=== PATIENT | female | born 1930 | race Hispanic/Latino ===

== ENCOUNTER 2018-04-16 05:20 | Observation (INO) | payer MEDICARE ==
[2018-04-13 11:06] LABS: BASOPHILS # (AUTO) 0.1 (0.0-0.1); BASOPHILS % 0.5 % (0.0-1.0); EOSINOPHILS # (AUTO) 0.2 (0.0-0.4); EOSINOPHILS % 1.4 % (0.0-6.0); HEMATOCRIT 39.9 % (34.2-44.1); HEMOGLOBIN 12.9 g/dL (12.0-16.0); LYMPHOCYTES # (AUTO) 2.5 (1.0-3.2); LYMPHOCYTES % 22.5 % (18.0-39.1); MEAN CORPUSCULAR HEMOGLOBIN 27.6 pg (28-32); MEAN CORPUSCULAR HGB CONC 32.3 g/dL (31-35); MEAN CORPUSCULAR VOLUME 85.3 fL (81-99); MONOCYTES # (AUTO) 0.7 (0.2-0.8); MONOCYTES % 6.6 % (4.4-11.3); NEUTROPHILS # (AUTO) 7.6 (2.1-6.9); NEUTROPHILS % 68.6 % (38.7-80.0); PLATELET COUNT 185 x10e3/uL (140-360); RED BLOOD COUNT 4.68 x10e6/uL (3.6-5.1); RED CELL DISTRIBUTION WIDTH 12.4 % (11.7-14.4)
[2018-04-13 11:22] LABS: CALCIUM 9.3 mg/dL (8.4-10.2); CREATININE, SERUM 1.04 mg/dL (0.57-1.11)
[~2018-04-16] VITALS: Ht 162.6 cm; Wt 73.5 kg
[~2018-04-16 05:20] MED LIST: AMLODIPINE BESYL5 MG PO; ATORVASTATIN CA10 MG PO; LANTUS 3ML100 UNITS/ SC; METOPROLOL SUCC25 MG PO; TYLENOL ARTHRITIS PO; VIT D2 PO
--- OUTSIDE RECORDS SUMMARY | 2018-04-16 05:27 | XMS REPORT | Summary of Care ---
Author Organization Unknown Address Unknown Phone Unavailable Encounter [facility](RAFAEL) [id number] Date(s): 03/06/14 - 03/08/14 [address] [place], [place] [id number] [place] [address] Discharge Diagnosis: Acute gastroenteritis Discharge Disposition: Home Physician Attending: Eric Mcguire MD Physician Admitting: Eric Mcguire MD Reason for Visit SBO Vital Signs 1 2 3 Most recent to oldest [Reference Range]: 162.56 cm (03/07/14 3:40 AM) 162.56 cm (03/06/14 6:56 PM) Height 72.727 kg (03/07/14 5:00 AM) Current Weight 97.8 DegF (03/08/14 11:40 AM) 98.3 DegF (03/08/14 8:50 AM) 98 DegF (03/08/14 3:58 AM) Temperature Oral [96.4-99.1 DegF] 147 mmHg *HI* (03/08/14 11:40 AM) 127 mmHg (03/08/14 8:50 AM) 149 mmHg *HI* (03/08/14 3:58 AM) Systolic Blood Pressure [90-140 mmHg] 68 mmHg (03/08/14 11:40 AM) 67 mmHg (03/08/14 8:50 AM) 66 mmHg (03/08/14 3:58 AM) Diastolic Blood Pressure [60-90 mmHg] 16 BRMIN (03/08/14 11:40 AM) 16 BRMIN (03/08/14 8:50 AM) 16 BRMIN (03/08/14 3:58 AM) Respiratory Rate [14-20 BRMIN] 81 bpm (03/08/14 11:40 AM) 82 bpm (03/08/14 8:50 AM) 97 bpm (03/08/14 3:58 AM) Peripheral Pulse Rate [60-100 bpm] 73.636 kg (03/07/14 3:40 AM) 73.636 kg (03/06/14 6:56 PM) Weight 27.87 m2 (03/07/14 3:40 AM) 27.87 m2 (03/06/14 6:56 PM) Body Mass Index Problem List Condition Effective Dates Status Health Status Informant Diabetes(Confirmed) Resolved High Resolved cholesterol(Confirme d) Hypertension(Confirm Resolved ed) Allergies, Adverse Reactions, Alerts Substance Reaction Severity Status codeine Active penicillins Active Medications Ativan 1 mg, Route: IVP, Drug form: INJ, ONCE, Dosing Weight 73.636, kg, Priority: STAT , Start date: 03/06/14 23:42:00, Stop date: 03/06/14 23:42:00 Start Date: 03/06/14 Stop Date: 03/06/14 Status: Completed atorvastatin 10 mg, 1 tab, Route: PO, Drug form: TAB, Bedtime, Dosing Weight 73.636, kg, Star t date: 03/07/14 21:00:00, Duration: 30 day, Stop date: 04/05/14 21:00:00 Notes: (Same As: Lipitor) Start Date: 03/07/14 Stop Date: 03/08/14 Status: Discontinued atorvastatin 10 mg oral tablet 10 mg=1 tab, PO, Bedtime, # 30 tab, 0 Refill(s) Start Date: 03/07/14 Status: Ordered Cozaar 100 mg, 2 tab, Route: PO, Drug form: TAB, Daily, Start date: 03/08/14 9:00:00, D uration: 30 day, Stop date: 04/06/14 9:00:00 Notes: (Same as: Cozaar) Start Date: 03/08/14 Stop Date: 03/08/14 Status: Discontinued Dextrose 50% Syringe 12.5 gm, 25 mL, Route: IVP, Drug Form: INJ, Dosing Weight 73.636, kg, PRN, PRN B lood Glucose Results, Start date: 03/07/14 11:26:00, Duration: 30 day, Stop date : 04/06/14 11:25:00 Start Date: 03/07/14 Stop Date: 03/07/14 Status: Discontinued Dextrose 50% Syringe 25 gm, 50 mL, Route: IVP, Drug Form: INJ, Dosing Weight 73.636, kg, PRN, PRN Blo od Glucose Results, Start date: 03/07/14 11:26:00, Duration: 30 day, Stop date: 04/06/14 11:25:00 Start Date: 03/07/14 Stop Date: 03/07/14 Status: Discontinued Dextrose 50% Syringe 12.5 gm, 25 mL, Route: IVP, Drug Form: INJ, Dosing Weight 73.636, kg, PRN, PRN B lood Glucose Results, Start date: 03/07/14 18:13:00, Duration: 30 day, Stop date : 04/06/14 18:12:00 Start Date: 03/07/14 Stop Date: 03/08/14 Status: Discontinued Dextrose 50% Syringe 25 gm, 50 mL, Route: IVP, Drug Form: INJ, Dosing Weight 73.636, kg, PRN, PRN Blo od Glucose Results, Start date: 03/07/14 18:13:00, Duration: 30 day, Stop date: 04/06/14 18:12:00 Start Date: 03/07/14 Stop Date: 03/08/14 Status: Discontinued Dilaudid 1 mg, Route: IV, ONCE, Dosing Weight 73.636, kg, Start date: 03/06/14 21:14:00, Stop date: 03/06/14 21:14:00 Start Date: 03/06/14 Stop Date: 03/06/14 Status: Discontinued Flagyl 500 mg oral tablet 500 mg=1 tab, PO, Q8H, # 21 tab, 0 Refill(s) Start Date: 03/08/14 Stop Date: 03/15/14 Status: Ordered glipiZIDE 5 mg oral tablet 5 mg, 1 tab, Route: PO, Drug form: TAB, Daily, Dosing Weight 73.636, kg, Start d ate: 03/08/14 9:00:00, Duration: 30 day, Stop date: 04/06/14 9:00:00 Notes: (Same as: Glucotrol) 30 min before meals. Start Date: 03/08/14 Stop Date: 03/08/14 Status: Discontinued glipiZIDE 5 mg oral tablet 5 mg=1 tab, PO, Daily, # 30 tab, 0 Refill(s) Start Date: 03/07/14 Status: Ordered glucagon 1 mg, Route: IM, Drug form: PDR/INJ, PRN, Dosing Weight 73.636, kg, PRN Blood Gl ucose Results, Start date: 03/07/14 11:26:00, Duration: 30 day, Stop date: 04/06 11:25:00 Start Date: 03/07/14 Stop Date: 03/07/14 Status: Discontinued glucagon 1 mg, Route: IM, Drug form: PDR/INJ, PRN, Dosing Weight 73.636, kg, PRN Blood Gl ucose Results, Start date: 03/07/14 18:13:00, Duration: 30 day, Stop date: 04/06 18:12:00 Start Date: 03/07/14 Stop Date: 03/08/14 Status: Discontinued hydrochlorothiazide-losartan 12.5 mg-100 mg oral tablet 1 tab, Route: PO, Drug Form: TAB, Dosing Weight 73.636, kg, Daily, Start date: 0 03/08/14 9:00:00, Duration: 30 day, Stop date: 04/06/14 9:00:00 Start Date: 03/08/14 Stop Date: 03/07/14 Status: Deleted hydrochlorothiazide-losartan 12.5 mg-100 mg oral tablet 1 tab, PO, Daily, # 30 tab, 0 Refill(s) Start Date: 03/07/14 Status: Ordered insulin aspart 1 unit, 0.01 mL, Route: SUB-Q, Drug form: SOLN, Bedtime, Dosing Weight 73.636, k g, PRN Blood Glucose Results, Start date: 03/07/14 11:26:00, Duration: 30 day, S top date: 04/06/14 11:25:00 Notes: Roll in palms of hands gently; Do not shake vigorously. (Same as: Nalini Mayers)"single patient use only" Stable for 28 days at room temperature.Expires in _ ____ days from Date Start Date: 03/07/14 Stop Date: 03/07/14 Status: Discontinued insulin aspart 4 unit, 0.04 mL, Route: SUB-Q, Drug form: SOLN, Bedtime, Dosing Weight 73.636, k g, PRN Blood Glucose Results, Start date: 03/07/14 11:26:00, Duration: 30 day, S top date: 04/06/14 11:25:00 Notes: Roll in palms of hands gently; Do not shake vigorously. (Same as: NovoLO G)"single patient use only" Stable for 28 days at room temperature.Expires in _ ____ days from Date Start Date: 03/07/14 Stop Date: 03/07/14 Status: Discontinued insulin aspart 3 unit, 0.03 mL, Route: SUB-Q, Drug form: SOLN, Bedtime, Dosing Weight 73.636, k g, PRN Blood Glucose Results, Start date: 03/07/14 11:26:00, Duration: 30 day, S top date: 04/06/14 11:25:00 Notes: Roll in palms of hands gently; Do not shake vigorously. (Same as: NovoLO G)"single patient use only" Stable for 28 days at room temperature.Expires in _ ____ days from Date Start Date: 03/07/14 Stop Date: 03/07/14 Status: Discontinued insulin aspart 2 unit, 0.02 mL, Route: SUB-Q, Drug form: SOLN, Bedtime, Dosing Weight 73.636, k g, PRN Blood Glucose Results, Start date: 03/07/14 11:26:00, Duration: 30 day, S top date: 04/06/14 11:25:00 Notes: Roll in palms of hands gently; Do not shake vigorously. (Same as: NovoLO G)"single patient use only" Stable for 28 days at room temperature.Expires in _ ____ days from Date Start Date: 03/07/14 Stop Date: 03/07/14 Status: Discontinued insulin aspart 10 unit, 0.1 mL, Route: SUB-Q, Drug form: SOLN, TID-Before Meals, Dosing Weight 73.636, kg, PRN Blood Glucose Results, Start date: 03/07/14 11:26:00, Duration: 30 day, Stop date: 04/06/14 11:25:00 Notes: Roll in palms of hands gently; Do not shake vigorously. (Same as: NovoLO G)"single patient use only" Stable for 28 days at room temperature.Expires in _ ____ days from Date Start Date: 03/07/14 Stop Date: 03/07/14 Status: Discontinued insulin aspart 8 unit, 0.08 mL, Route: SUB-Q, Drug form: SOLN, TID-Before Meals, Dosing Weight 73.636, kg, PRN Blood Glucose Results, Start date: 03/07/14 11:26:00, Duration: 30 day, Stop date: 04/06/14 11:25:00 Notes: Roll in palms of hands gently; Do not shake vigorously. (Same as: NovoLO G)"single patient use only" Stable for 28 days at room temperature.Expires in _ ____ days from Date Start Date: 03/07/14 Stop Date: 03/07/14 Status: Discontinued insulin aspart 2 unit, 0.02 mL, Route: SUB-Q, Drug form: SOLN, TID-Before Meals, Dosing Weight 73.636, kg, PRN Blood Glucose Results, Start date: 03/07/14 11:26:00, Duration: 30 day, Stop date: 04/06/14 11:25:00 Notes: Roll in palms of hands gently; Do not shake vigorously. (Same as: NovoLO G)"single patient use only" Stable for 28 days at room temperature.Expires in _ ____ days from Date Start Date: 03/07/14 Stop Date: 03/07/14 Status: Discontinued insulin aspart 6 unit, 0.06 mL, Route: SUB-Q, Drug form: SOLN, TID-Before Meals, Dosing Weight 73.636, kg, PRN Blood Glucose Results, Start date: 03/07/14 11:26:00, Duration: 30 day, Stop date: 04/06/14 11:25:00 Notes: Roll in palms of hands gently; Do not shake vigorously. (Same as: NovoLO G)"single patient use only" Stable for 28 days at room temperature.Expires in _ ____ days from Date Start Date: 03/07/14 Stop Date: 03/07/14 Status: Discontinued insulin aspart 4 unit, 0.04 mL, Route: SUB-Q, Drug form: SOLN, TID-Before Meals, Dosing Weight 73.636, kg, PRN Blood Glucose Results, Start date: 03/07/14 11:26:00, Duration: 30 day, Stop date: 04/06/14 11:25:00 Notes: Roll in palms of hands gently; Do not shake vigorously. (Same as: NovoLO G)"single patient use only" Stable for 28 days at room temperature.Expires in _ ____ days from Date Start Date: 03/07/14 Stop Date: 03/07/14 Status: Discontinued insulin aspart 4 unit, 0.04 mL, Route: SUB-Q, Drug form: SOLN, TID-Before Meals, Dosing Weight 73.636, kg, PRN Blood Glucose Results, Start date: 03/07/14 18:13:00, Duration: 30 day, Stop date: 04/06/14 18:12:00 Notes: Roll in palms of hands gently; Do not shake vigorously. (Same as: NovoLO G)"single patient use only" Stable for 28 days at room temperature.Expires in _ ____ days from Date Start Date: 03/07/14 Stop Date: 03/08/14 Status: Discontinued insulin aspart 5 unit, 0.05 mL, Route: SUB-Q, Drug form: SOLN, TID-Before Meals, Dosing Weight 73.636, kg, PRN Blood Glucose Results, Start date: 03/07/14 18:13:00, Duration: 30 day, Stop date: 04/06/14 18:12:00 Notes: Roll in palms of hands gently; Do not shake vigorously. (Same as: NovoLO G)"single patient use only" Stable for 28 days at room temperature.Expires in _ ____ days from Date Start Date: 03/07/14 Stop Date: 03/08/14 Status: Discontinued insulin aspart 2 unit, 0.02 mL, Route: SUB-Q, Drug form: SOLN, Bedtime, Dosing Weight 73.636, k g, PRN Blood Glucose Results, Start date: 03/07/14 18:13:00, Duration: 30 day, S top date: 04/06/14 18:12:00 Notes: Roll in palms of hands gently; Do not shake vigorously. (Same as: NovoLO G)"single patient use only" Stable for 28 days at room temperature.Expires in _ ____ days from Date Start Date: 03/07/14 Stop Date: 03/08/14 Status: Discontinued insulin aspart 1 unit, 0.01 mL, Route: SUB-Q, Drug form: SOLN, Bedtime, Dosing Weight 73.636, k g, PRN Blood Glucose Results, Start date: 03/07/14 18:13:00, Duration: 30 day, S top date: 04/06/14 18:12:00 Notes: Roll in palms of hands gently; Do not shake vigorously. (Same as: NovoLO G)"single patient use only" Stable for 28 days at room temperature.Expires in _ ____ days from Date Start Date: 03/07/14 Stop Date: 03/08/14 Status: Discontinued insulin aspart 3 unit, 0.03 mL, Route: SUB-Q, Drug form: SOLN, Bedtime, Dosing Weight 73.636, k g, PRN Blood Glucose Results, Start date: 03/07/14 18:13:00, Duration: 30 day, S top date: 04/06/14 18:12:00 Notes: Roll in palms of hands gently; Do not shake vigorously. (Same as: NovoLO G)"single patient use only" Stable for 28 days at room temperature.Expires in _ ____ days from Date Start Date: 03/07/14 Stop Date: 03/08/14 Status: Discontinued insulin aspart 4 unit, 0.04 mL, Route: SUB-Q, Drug form: SOLN, Bedtime, Dosing Weight 73.636, k g, PRN Blood Glucose Results, Start date: 03/07/14 18:13:00, Duration: 30 day, S top date: 04/06/14 18:12:00 Notes: Roll in palms of hands gently; Do not shake vigorously. (Same as: NovoLO G)"single patient use only" Stable for 28 days at room temperature.Expires in _ ____ days from Date Start Date: 03/07/14 Stop Date: 03/08/14 Status: Discontinued insulin aspart 3 unit, 0.03 mL, Route: SUB-Q, Drug form: SOLN, TID-Before Meals, Dosing Weight 73.636, kg, PRN Blood Glucose Results, Start date: 03/07/14 18:13:00, Duration: 30 day, Stop date: 04/06/14 18:12:00 Notes: Roll in palms of hands gently; Do not shake vigorously. (Same as: NovoLO G)"single patient use only" Stable for 28 days at room temperature.Expires in _ ____ days from Date Start Date: 03/07/14 Stop Date: 03/08/14 Status: Discontinued insulin aspart 1 unit, 0.01 mL, Route: SUB-Q, Drug form: SOLN, TID-Before Meals, Dosing Weight 73.636, kg, PRN Blood Glucose Results, Start date: 03/07/14 18:13:00, Duration: 30 day, Stop date: 04/06/14 18:12:00 Notes: Roll in palms of hands gently; Do not shake vigorously. (Same as: NovoLO G)"single patient use only" Stable for 28 days at room temperature.Expires in _ ____ days from Date Start Date: 03/07/14 Stop Date: 03/08/14 Status: Discontinued insulin aspart 2 unit, 0.02 mL, Route: SUB-Q, Drug form: SOLN, TID-Before Meals, Dosing Weight 73.636, kg, PRN Blood Glucose Results, Start date: 03/07/14 18:13:00, Duration: 30 day, Stop date: 04/06/14 18:12:00 Notes: Roll in palms of hands gently; Do not shake vigorously. (Same as: NovoPELON Mayers)"single patient use only" Stable for 28 days at room temperature.Expires in _ ____ days from Date Start Date: 03/07/14 Stop Date: 03/08/14 Status: Discontinued insulin detemir 100 units/mL subcutaneous solution 40 unit, SUB-Q, Daily, 0 Refill(s) Start Date: 03/08/14 Status: Ordered Lantus 40 units, Daily, 0 Refill(s) Start Date: 03/07/14 Status: Ordered Lantus Route: SUB-Q, Daily, Dosing Weight 73.636, kg, Start date: 03/08/14 9:00:00, Dur ation: 30 day, Stop date: 04/06/14 9:00:00 Start Date: 03/08/14 Stop Date: 03/07/14 Status: Deleted Levemir FlexPen 40 unit, 0.4 mL, Route: SUB-Q, Drug form: INJ, Daily, Start date: 03/08/14 9:00: 00, Duration: 30 day, Stop date: 04/06/14 9:00:00 Notes: Same as LevemirDo not hold insulin without contacting prescriber "single patient use only" Start Date: 03/08/14 Stop Date: 03/08/14 Status: Discontinued loperamide 2 mg, 1 cap, Route: PO, Drug form: CAP, ONCE, Dosing Weight 73.636, kg, Priority : STAT, Start date: 03/06/14 20:35:00, Stop date: 03/06/14 20:35:00 Notes: (Same as: Imodium) MAX adult dose is 8 caps/day Start Date: 03/06/14 Stop Date: 03/06/14 Status: Completed metoprolol tartrate 25 mg, 1 tab, Route: PO, Drug form: TAB, Daily, Dosing Weight 73.636, kg, Start date: 03/08/14 9:00:00, Duration: 30 day, Stop date: 04/06/14 9:00:00 Notes: (Same as: Lopressor) Start Date: 03/08/14 Stop Date: 03/08/14 Status: Discontinued Metoprolol Tartrate 25 mg oral tablet Daily, 0 Refill(s) Start Date: 03/06/14 Status: Ordered Microzide 12.5 mg, 1 cap, Route: PO, Drug form: CAP, Daily, Start date: 03/08/14 9:00:00, Duration: 30 day, Stop date: 04/06/14 9:00:00 Notes: (Same as: Microzide) With food. Start Date: 03/08/14 Stop Date: 03/08/14 Status: Discontinued morphine Sulfate 2 mg, 1 mL, Route: IVP, Drug form: INJ, Q3H, Dosing Weight 73.636, kg, PRN Pain Score 4-6, Start date: 03/07/14 4:19:00, Duration: 30 day, Stop date: 04/06/14 4 :18:00 Notes: (Same as:MORPhine Sulfate) Start Date: 03/07/14 Stop Date: 03/08/14 Status: Discontinued morphine Sulfate 4 mg, 2 mL, Route: IVP, Drug form: INJ, ONCE, Dosing Weight 73.636, kg, Priority : STAT, Start date: 03/06/14 23:42:00, Stop date: 03/06/14 23:42:00 Notes: (Same as:MORPhine Sulfate) Start Date: 03/06/14 Stop Date: 03/07/14 Status: Completed NS + KCL 20mEq/L 1000ml (Premix) 1,000 mL 1,000 mL, Rate: 125 ml/hr, Infuse over: 8 hr, Route: IV, Dosing Weight 73.636 kg , Total Volume: 1,000, Start date: 03/07/14 0:35:00, Duration: 30 day, Stop date : 04/06/14 0:34:00 Notes: PREMIX IV - Do Not Alter Start Date: 03/07/14 Stop Date: 03/08/14 Status: Discontinued ondansetron 4 mg, 2 mL, Route: IVP, Drug form: INJ, Q8H, Dosing Weight 73.636, kg, PRN Nause a & Vomiting, Start date: 03/07/14 4:19:00, Duration: 30 day, Stop date: 04/06/14 4:18:00 Notes: (Same as: Zofran) Start Date: 03/07/14 Stop Date: 03/08/14 Status: Discontinued ondansetron 4 mg, Route: IVP, Drug form: INJ, ONCE, Dosing Weight 73.636, kg, Priority: STAT , Start date: 03/06/14 20:32:00, Stop date: 03/06/14 20:32:00 Start Date: 03/06/14 Stop Date: 03/06/14 Status: Completed Onglyza 2.5 mg oral tablet 2.5 mg=1 tab, PO, Daily, # 30 tab, 0 Refill(s) Start Date: 03/07/14 Status: Ordered pneumococcal 23-valent vaccine 0.5 ml, Route: IM, Drug Form: INJ, Daily, Start date: 03/07/14 9:00:00, Duration : 1 doses or times, Stop date: 03/07/14 9:00:00 Notes: (Same as: Pneumovax 23) Refrigerate Start Date: 03/07/14 Stop Date: 03/07/14 Status: Completed potassium chloride 20 mEq, 100 mL, Route: IVPB, Drug form: INJ, Q2H, Dosing Weight 73.636, kg, Tota l dose=40 mEq, Start date: 03/07/14 12:00:00, Duration: 2 doses or times, Stop d ate: 03/07/14 14:00:00 Notes: (Same as: KCL) Infuse no faster than 10 mEq/hr if given peripherally. Start Date: 03/07/14 Stop Date: 03/07/14 Status: Completed Sodium Chloride 0.9% (Bolus) IV 1,000 mL, 1,000 ml/hr, Infuse Over: 1 hr, Route: IV, ONCE, Priority: STAT, Dosin g Weight 73.636 kg, Start date: 03/06/14 20:32:00, Duration: 1 doses or times, S top date: 03/06/14 20:32:00 Start Date: 03/06/14 Stop Date: 03/06/14 Status: Completed Zofran 4 mg, 2 mL, Route: IVP, Drug form: INJ, ONCE, Dosing Weight 73.636, kg, Priority : STAT, Start date: 03/06/14 23:42:00, Stop date: 03/06/14 23:42:00 Notes: (Same as: Zofran) Start Date: 03/06/14 Stop Date: 03/07/14 Status: Completed Zofran 4 mg oral tablet 4 mg=1 tab, PO, BID, # 10 tab, 0 Refill(s) Start Date: 03/06/14 Status: Ordered Results ELECTROLYTES 1 2 3 Most recent to oldest [Reference Range]: 141 mEq/L (03/08/14 4:14 AM) 131 mEq/L *LOW* (03/06/14 8:40 PM) Sodium Lvl [135-145 mEq/L] 4.2 mEq/L (03/08/14 4:14 AM) 3.0 mEq/L 1 *CRIT* (03/06/14 8:40 PM) Potassium Lvl [3.5-5.1 mEq/L] 113 mEq/L *HI* (03/08/14 4:14 AM) 97 mEq/L (03/06/14 8:40 PM) Chloride Lvl [95-109 mEq/L] 23 mEq/L *LOW* (03/08/14 4:14 AM) 23 mEq/L *LOW* (03/06/14 8:40 PM) CO2 [24-32 mEq/L] 9.2 mEq/L *LOW* (03/08/14 4:14 AM) AGAP [10.0-20.0 mEq/L] 1Result Comment: Critical Result(s) called to ashley acuña at 03/06/2014 21:11 by LEN. Read back OK. CHEM PANEL 1 2 3 Most recent to oldest [Reference Range]: 1.0 mg/dL (03/08/14 4:14 AM) 1.6 mg/dL *HI* (03/06/14 8:40 PM) Creatinine Lvl [0.5-1.4 mg/dL] 52 mL/min/1.73m2 2 *NA* (03/08/14 4:14 AM) 30 mL/min/1.73m2 3 *NA* (03/06/14 8:40 PM) eGFR 15 mg/dL (03/08/14 4:14 AM) 29 mg/dL *HI* (03/06/14 8:40 PM) BUN [7-22 mg/dL] 15 (03/08/14 4:14 AM) 18 (03/06/14 8:40 PM) B/C Ratio [6-25] 122 mg/dL 4 *HI* (03/08/14 4:14 AM) 213 mg/dL 5 *HI* (03/06/14 8:40 PM) Glucose Lvl [70-99 mg/dL] 6.2 g/dL *LOW* (03/08/14 4:14 AM) 8.4 g/dL (03/06/14 8:40 PM) Total Protein [6.4-8.4 g/dL] 3.0 g/dL *LOW* (03/08/14 4:14 AM) 4.2 g/dL (03/06/14 8:40 PM) Albumin Lvl [3.5-5.0 g/dL] 3.2 g/dL (03/08/14 4:14 AM) 4.2 g/dL *HI* (03/06/14 8:40 PM) Globulin [2.0-4.0 g/dL] 0.9 (03/08/14 4:14 AM) 1.0 (03/06/14 8:40 PM) A/G Ratio [0.7-1.6] 7.6 mg/dL *LOW* (03/08/14 4:14 AM) 8.9 mg/dL (03/06/14 8:40 PM) Calcium Lvl [8.5-10.5 mg/dL] 16 unit/L (03/08/14 4:14 AM) 21 unit/L (03/06/14 8:40 PM) ALT [0-65 unit/L] 12 unit/L (03/08/14 4:14 AM) 12 unit/L (03/06/14 8:40 PM) AST [0-37 unit/L] 78 unit/L (03/08/14 4:14 AM) 104 unit/L (03/06/14 8:40 PM) Alk Phos [39-136 unit/L] 0.8 mg/dL (03/08/14 4:14 AM) 0.9 mg/dL (03/06/14 8:40 PM) Bili Total [0.2-1.3 mg/dL] 21 unit/L *LOW* (03/06/14 8:40 PM) Amylase Lvl [25-115 unit/L] 59 unit/L *LOW* (03/06/14 8:40 PM) Lipase Lvl [73-393 unit/L] 2Result Comment: The eGFR is calculated using the CKD-EPI formula. In most young, healthy individuals the eGFR will be >90 mL/min/1.73m2. The eGFR declines with age. An eGFR of 60-89 may be normal in some populations, particularly the elderly, for whom the CKD-EPI formula has not been extensively validated. Use of the eGFR is not recommended in the following populations: Individuals with unstable creatinine concentrations, including patients and those with serious co-morbid conditions. Patients with extremes in muscle mass or diet. The data above are obtained from the National Kid[employer] Disease Education Program ( NK[employer]) which additionally recommends that when the eGFR is used in patients with extremes of body mass index for purposes of drug dosing, the eGFR should be mul tiplied by the estimated BMI. 3Result Comment: The eGFR is calculated using the CKD-EPI formula. In most young, healthy individuals the eGFR will be >90 mL/min/1.73m2. The eGFR declines with age. An eGFR of 60-89 may be normal in some populations, particularly the elderly, for whom the CKD-EPI formula has not been extensively validated. Use of the eGFR is not recommended in the following populations: Individuals with unstable creatinine concentrations, including patients and those with serious co-morbid conditions. Patients with extremes in muscle mass or diet. The data above are obtained from the National Kidney Disease Education Program ( NKDEP) which additionally recommends that when the eGFR is used in patients with extremes of body mass index for purposes of drug dosing, the eGFR should be mul tiplied by the estimated BMI. 4Interpretive Data: Adult reference range values reflect the clinical guidelines of the [employer] [place] [employer]. 5Interpretive Data: Adult reference range values reflect the clinical guidelines of the [employer] [place] [employer]. SPECIAL CHEMISTRY 1 2 3 Most recent to oldest [Reference Range]: 8.0 % *HI* (03/08/14 4:14 AM) Hgb A1C [<=5.6 %] URINE AND STOOL 1 2 3 Most recent to oldest [Reference Range]: Clear (03/07/14 9:46 PM) UA Turbidity [Clear] Ltyellow *NA* (03/07/14 9:46 PM) UA Color 5.0 (03/07/14 9:46 PM) UA pH [5.0-8.0] 1.011 (03/07/14 9:46 PM) UA Spec Grav [<=1.030] Negative mg/dL *NA* (03/07/14 9:46 PM) UA Glucose [Negative mg/dL] Negative (03/07/14 9:46 PM) UA Blood [Negative] Negative mg/dL *NA* (03/07/14 9:46 PM) UA Ketones [Negative mg/dL] Negative mg/dL (03/07/14 9:46 PM) UA Protein [Negative mg/dL] <=1.0 mg/dL *NA* (03/07/14 9:46 PM) UA Urobilinogen [0.1-1.0 mg/dL] Negative *NA* (03/07/14 9:46 PM) UA Bili [Negative] Negative (03/07/14 9:46 PM) UA Leuk Est [Negative] Negative (03/07/14 9:46 PM) UA Nitrite [Negative] 5 /HPF (03/07/14 9:46 PM) UA WBC [0-5 /HPF] <1 /HPF (03/07/14 9:46 PM) UA RBC [0-2 /HPF] Occasional /HPF *NA* (03/07/14 9:46 PM) UA Bacteria [None Seen /HPF] Occasional /LPF *NA* (03/07/14 9:46 PM) UA Sq Epi [Few /LPF] HEMATOLOGY 1 2 3 Most recent to oldest [Reference Range]: 9.0 K/CMM (03/08/14 4:14 AM) 18.1 K/CMM *HI* (03/06/14 8:40 PM) WBC [3.7-10.4 K/CMM] 4.09 M/CMM *LOW* (1/17/15 4:14 AM) 5.06 M/CMM (03/06/14 8:40 PM) RBC [4.20-5.40 M/CMM] 11.6 g/dL *LOW* (03/08/14 4:14 AM) 11.6 g/dL *LOW* (03/08/14 4:14 AM) 14.2 g/dL (03/06/14 8:40 PM) Hgb [12.0-16.0 g/dL] 35.0 % *LOW* (03/08/14 4:14 AM) 35.0 % *LOW* (03/08/14 4:14 AM) 42.7 % (03/06/14 8:40 PM) Hct [36.0-48.0 %] 85.6 fL (03/08/14 4:14 AM) 84.3 fL (03/06/14 8:40 PM) MCV [80.0-98.0 fL] 28.3 pg (03/08/14 4:14 AM) 28.0 pg (03/06/14 8:40 PM) MCH [27.0-31.0 pg] 33.1 g/dL (03/08/14 4:14 AM) 33.2 g/dL (03/06/14 8:40 PM) MCHC [32.0-36.0 g/dL] 13.1 % (03/08/14 4:14 AM) 13.4 % (03/06/14 8:40 PM) RDW [11.5-14.5 %] 158 K/CMM (03/08/14 4:14 AM) 211 K/CMM (03/06/14 8:40 PM) Platelet [133-450 K/CMM] 10.9 fL *HI* (03/08/14 4:14 AM) 10.6 fL *HI* (03/06/14 8:40 PM) MPV [7.4-10.4 fL] 63.2 % (03/08/14 4:14 AM) 82.9 % *HI* (03/06/14 8:40 PM) Segs [45.0-75.0 %] 22.8 % (03/08/14 4:14 AM) 10.5 % *LOW* (03/06/14 8:40 PM) Lymphocytes [20.0-40.0 %] 9.3 % (03/08/14 4:14 AM) 5.7 % (03/06/14 8:40 PM) Monocytes [2.0-12.0 %] 4.2 % *HI* (03/08/14 4:14 AM) 0.4 % (03/06/14 8:40 PM) Eosinophils [0.0-4.0 %] 0.5 % (03/08/14 4:14 AM) 0.5 % (03/06/14 8:40 PM) Basophils [0.0-1.0 %] 5.7 K/CMM (03/08/14 4:14 AM) 15.0 K/CMM *HI* (03/06/14 8:40 PM) Segs-Bands # [1.5-8.1 K/CMM] 2.0 K/CMM (03/08/14 4:14 AM) 1.9 K/CMM (03/06/14 8:40 PM) Lymphocytes # [1.0-5.5 K/CMM] 0.8 K/CMM (03/08/14 4:14 AM) 1.0 K/CMM *HI* (03/06/14 8:40 PM) Monocytes # [0.0-0.8 K/CMM] 0.4 K/CMM (03/08/14 4:14 AM) 0.1 K/CMM (03/06/14 8:40 PM) Eosinophils # [0.0-0.5 K/CMM] 0.1 K/CMM (03/06/14 8:40 PM) Basophils # [0.0-0.2 K/CMM] 14.3 seconds (03/08/14 4:14 AM) PT [12.0-14.7 seconds] 1.10 6 (03/08/14 4:14 AM) INR [0.85-1.17] 38.8 seconds 7 *HI* (03/08/14 4:14 AM) PTT [22.9-35.8 seconds] 6Interpretive Data: RECOMMENDED RANGES FOR PROTIME INR: 2.0-3.0 for most medical and surgical thromboembolic states. 2.5-3.5 for artificial heart valves and recurrent embolism. INR SHOULD BE USED ONLY FOR PATIENTS ON STABLE ANTICOAGULANT THERAPY. 7Interpretive Data: Heparin Therapeutic Range: 57 - 92 Seconds MOLECULAR DIAGNOSTIC 1 2 3 Most recent to oldest [Reference Range]: Negative 8 (03/07/14 11:41 PM) C difficile DNA [Negative] 8Interpretive Data: [employer] Clostridium difficile assay utilizes loop-mediated isothermal DNA amplification (LAMP) technology to detect a 204 bp region of the tcdA gene within the PaLoc gene segment present in all known toxigenic C. difficile strains. The assay utilizes FDA cleared IVD reagents. Performance characteristics have be en verified by the [facility] within the [facility]. The [facility] is authorized under the Clinical Labo ratory Improvement Amendment of 1988 (CLIA-88) to perform high complexity testin g. Medications Administered During Your Visit No data available for this section Immunizations Vaccine Date Refusal Reason pneumococcal 23-valent vaccine 03/07/14 Patient Refuses Procedures Procedure Type Body Site Date of Procedure Related Diagnosis Cataract surgery Cholecystectomy Social History Social History Type Response Smoking Status Never smoker, Exposure to Tobacco Smoke None, Cigarette Smoking Last 365 Days No, Reg Smoking Cessation Counseling No Assessment and Plan Extracted from: Title: Clinical Document Author: Maria Del Carmen Brito Date: 03/08/14 [facility] Progress Note SUBJECTIVE No acute events. Pt denies ZACARIAS, dizziness, dysphagia, neck stiffness, CP, SOB, hemoptysis, N/V/D/C, hematemesis, hematochezia, hematuria, dysuria, skin rash. Pt reports abd pain is gone, no more diarrhea, no more abd distention. Tolerated breakfast fine. OBJECTIVE Vital Signs (last 24 hrs) Last Charted Minimum Maximum Temp97.8 (MAR 08 11:40)97.8 (MAR 08 11:40)98.7 (MAR 07 15:53) Heart Rate81 (MAR 08 11:40)81 (MAR 08 11:40)97 (MAR 08 03:58) Resp Rate 16 (MAR 08 11:40)16 (MAR 08 03:58)18 (MAR 07 15:53) SBPH 147 (MAR 08 11:40)127 (MAR 07 15:53)H 152 (MAR 07 23:59) DBP68 (MAR 08 11:40)66 (MAR 08 03:58)70 (MAR 07 15:53) Labs (Last four charted values) WBC 9.0(MAR 08)H 18.1(MAR 06) Hgb L 11.6(MAR 08)L 11.6(MAR 08)14.2(MAR 06) Hct L 35.0(MAR 08)L 35.0(MAR 08)42.7(MAR 06) Plt 158(MAR 08)211(MAR 06) Na 141(MAR 08)L 131(MAR 06) K 4.2(MAR 08)C 3.0(MAR 06) CO2 L 23(MAR 08)L 23(MAR 06) Cl H 113(MAR 08)97(MAR 06) Cr 1.0(MAR 08)H 1.6(MAR 06) BUN 15(MAR 08)H 29(MAR 06) Glucose Random H 122(MAR 08)H 213(MAR 06) Ca L 7.6(MAR 08)8.9(MAR 06) PT 14.3(MAR 08) INR 1.10(MAR 08) PTT H 38.8(MAR 08) Medications (21) Active Scheduled Meds (6): 03/07/14 atorvastatin 10 mg PO Bedtime 03/08/14 glipiZIDE (glipiZIDE 5 mg oral tablet) 5 mg PO Daily 03/08/14 hydrochlorothiazide (Microzide) 12.5 mg PO Daily 03/08/14 insulin detemir (Levemir FlexPen) 40 unit SUB-Q Daily 03/08/14 losartan (Cozaar) 100 mg PO Daily 03/08/14 metoprolol (metoprolol tartrate) 25 mg PO Daily Unscheduled Meds: None PRN Meds (14): 03/07/14 Dextrose 50% in Water IV (Dextrose 50% Syringe) 12.5 gm IVP PRN 03/07/14 Dextrose 50% in Water IV (Dextrose 50% Syringe) 25 gm IVP PRN 03/07/14 glucagon 1 mg IM PRN 03/07/14 insulin aspart 1 unit SUB-Q TID-Before Meals 03/07/14 insulin aspart 2 unit SUB-Q TID-Before Meals 03/07/14 insulin aspart 3 unit SUB-Q TID-Before Meals 03/07/14 insulin aspart 4 unit SUB-Q TID-Before Meals 03/07/14 insulin aspart 5 unit SUB-Q TID-Before Meals 03/07/14 insulin aspart 1 unit SUB-Q Bedtime 03/07/14 insulin aspart 2 unit SUB-Q Bedtime 03/07/14 insulin aspart 3 unit SUB-Q Bedtime 03/07/14 insulin aspart 4 unit SUB-Q Bedtime 03/07/14 morphine Sulfate 2 mg IVP Q3H 03/07/14 ondansetron 4 mg IVP Q8H One Time Meds: None Continuous Infusions (1): 03/07/14 LVP solution with potassium 1,000 mL (NS + KCL 20mEq/L 1000ml (Premix) 1,000 mL) 1,000 mL 125 ml/hr Physical Exam Gen: Pt resting comfortably, A&Ox3, NAD HEENT: PERRLA, EOMI, normocephalic, atraumatic, no thyromegaly, no neck stiffness Chest: RRR, no M/R/G, CTAB, no rhonchi wheezes or rales Abd: Bowel sounds present in 4 quads, soft, ND, NTTP Ext: No cyanosis or edema Skin: No rash noted ASSESSMENT & PLAN 1. Small bowel obstruction - resolved. 2. Acute kidney insufficiency secondary to dehydration. 3. Dehydration - resolved. 4. Diabetes type 2. 5. Hypertension. 6. Hyperlipidemia. Pt doing well. Repeat KUB shows resolution of SBO and constipation. Diarrhea resolved. Still awaiting C.diff results, but unlikely with resolution of Sx. Advance diet to regular for lunch. If tolerates, may d/c home with Rx for Flagyl, f/u with PCP.
--- OUTSIDE RECORDS SUMMARY | 2018-04-16 05:27 | XMS REPORT | Summary of Care ---
Author Author [facility] [place] Organization [facility] [place] Address Unknown Phone Unavailable Encounter HQ Awais(FIN) [id number] Date(s): 04/05/17 - 04/05/17 [facility] [place] [address] [place] [phone] Encounter Diagnosis Acute bronchitis, unspecified (Final) - 04/10/17 Discharge Disposition: Home or Self Care Attending Physician: Sandy Cheney MD Vital Signs No data available for this section Problem List Condition Effective Dates Status Health Status Informant Diabetes(Confirmed) Resolved High Resolved cholesterol(Confirme d) Hypertension(Confirm Resolved ed) Allergies, Adverse Reactions, Alerts Substance Reaction Severity Status penicillins Active codeine Active Medications No data available for this section Results No data available for this section Immunizations Not Given Vaccine Date Status Refusal Reason pneumococcal 23-valent vaccine 03/07/14 Not Given Patient Refuses Procedures Procedure Date Related Diagnosis Body Site Status Cataract surgery Completed Cholecystectomy Completed Social History Social History Type Response Smoking Status Never smoker; Exposure to Tobacco Smoke None; Cigarette Smoking Last 365 Days No; Reg Smoking Cessation Counseling No entered on: 03/06/14 Assessment and Plan No data available for this section
--- OUTSIDE RECORDS SUMMARY | 2018-04-16 05:27 | XMS REPORT | Summary of Care ---
Author Author [facility] [place] Organization [facility] [place] Address Unknown Phone Unavailable Encounter HQ Encntr_yen(FIN) [id number] Date(s): 05/24/16 - 05/24/16 [facility] [place] [address] [place] [phone] Discharge Disposition: Home or Self Care Attending Physician: Corey Adamson MD Vital Signs No data available for this section Problem List Condition Effective Dates Status Health Status Informant Diabetes(Confirmed) Resolved High Resolved cholesterol(Confirme d) Hypertension(Confirm Resolved ed) Allergies, Adverse Reactions, Alerts Substance Reaction Severity Status codeine Active penicillins Active Medications No data available for this section Results No data available for this section Immunizations Not Given Vaccine Date Status Refusal Reason pneumococcal 23-valent vaccine 03/07/14 Not Given Patient Refuses Procedures Procedure Date Related Diagnosis Body Site Cataract surgery Cholecystectomy Social History Social History Type Response Smoking Status Never smoker; Exposure to Tobacco Smoke None; Cigarette Smoking Last 365 Days No; Reg Smoking Cessation Counseling No Assessment and Plan No data available for this section
--- OUTSIDE RECORDS SUMMARY | 2018-04-16 05:27 | XMS REPORT | Continuity of Care Document ---
Author Author [facility] Interface Address Unknown Phone Unavailable Problems Problem Status Onset Date Classification Date Reported Comments Source Acute bronchitis, unspecified 04/11/2017 07/12/2017 [facility] J20.9 - ACUTE BRONCHITIS, UNSPECIFIED Active 04/04/2017 [facility] R10.9 - UNSPECIFIED ABDOMINAL PAIN Active 05/20/2016 [facility] Discharge Diagnosis: Acute gastroenteritis 03/06/2014 03/10/2014 [facility] VOMITING Active 03/06/2014 [facility] SBO Active 03/06/2014 [facility] Diabetes Resolved Problem 07/12/2017 [facility], [facility] High cholesterol Resolved Problem 07/12/2017 [facility], [facility] Hypertension Resolved Problem 07/12/2017 [facility] INTESTINAL OBSTRUCT NOS Active [facility] Medications Medication Details Route Status Patient Instructions Ordering Provider Order Date Source Metronidazole 500 MG Oral Tablet [Flagyl] 500 mg=1 tab, PO, Q8H, # 21 tab, 0 Refill(s) Active 03/08/2014 [facility] insulin detemir 100 units/mL subcutaneous solution 40 unit, SUB-Q, Daily, 0 Refill(s) Active 03/08/2014 [facility] Levemir FlexPen 40 unit, 0.4 mL, Route: SUB-Q, Drug form: INJ, Daily, Start date: 03/08/14 9:00:00, Duration: 30 day, Stop date: 04/06/14 9:00:00Notes: Same as Levemir Do not hold insulin without contacting prescriber "single patient use only" Inactive 03/08/2014 [facility] metoprolol tartrate 25 mg, 1 tab, Route: PO, Drug form: TAB, Daily, Dosing Weight 73.636, kg, Start date: 03/08/14 9:00:00, Duration: 30 day, Stop date: 04/06/14 9:00:00Notes: (Same as: Lopressor) Inactive 03/08/2014 [facility] Lantus Route: SUB-Q, Daily, Dosing Weight 73.636, kg, Start date: 03/08/14 9:00:00, Duration: 30 day, Stop date: 04/06/14 9:00:00 No Longer Active 03/08/2014 [facility] Hydrochlorothiazide 12.5 MG / Losartan Potassium 100 MG Oral Tablet 1 tab, Route: PO, Drug Form: TAB, Dosing Weight 73.636, kg, Daily, Start date: 03/08/14 9:00:00, Duration: 30 day, Stop date: 04/06/14 9:00:00 No Longer Active 03/08/2014 [facility] Glipizide 5 MG Oral Tablet 5 mg, 1 tab, Route: PO, Drug form: TAB, Daily, Dosing Weight 73.636, kg, Start date: 03/08/14 9:00:00, Duration: 30 day, Stop date: 04/06/14 9:00:00Notes: (Same as: Glucotrol) 30 min before meals. Inactive 03/08/2014 [facility] Microzide 12.5 mg, 1 cap, Route: PO, Drug form: CAP, Daily, Start date: 03/08/14 9:00:00, Duration: 30 day, Stop date: 04/06/14 9:00:00Notes: (Same as: Microzide) With food. Inactive 03/08/2014 [facility] Cozaar 100 mg, 2 tab, Route: PO, Drug form: TAB, Daily, Start date: 03/08/14 9:00:00, Duration: 30 day, Stop date: 04/06/14 9:00:00Notes: (Same as: Cozaar) Inactive 03/08/2014 [facility] atorvastatin 10 mg, 1 tab, Route: PO, Drug form: TAB, Bedtime, Dosing Weight 73.636, kg, Start date: 03/07/14 21:00:00, Duration: 30 day, Stop date: 04/05/14 21:00:00Notes: (Same As: Lipitor) No Longer Active 03/08/2014 [facility] Insulin, Aspart, Human 4 unit, 0.04 mL, Route: SUB-Q, Drug form: SOLN, TID-Before Meals, Dosing Weight 73.636, kg, PRN Blood Glucose Results, Start date: 03/07/14 18:13:00, Duration: 30 day, Stop date: 04/06/14 18:12:00Notes: Roll in palms of hands gently; Do not shake vigorously. (Same as: NovoLOG) "single patient use only" Stable for 28 days at room temperature. Expires in days from Date No Longer Active 03/08/2014 [facility] Dextrose 50% Syringe 12.5 gm, 25 mL, Route: IVP, Drug Form: INJ, Dosing Weight 73.636, kg, PRN, PRN Blood Glucose Results, Start date: 03/07/14 18:13:00, Duration: 30 day, Stop date: 04/06/14 18:12:00 No Longer Active 03/08/2014 [facility] Glucagon 1 mg, Route: IM, Drug form: PDR/INJ, PRN, Dosing Weight 73.636, kg, PRN Blood Glucose Results, Start date: 03/07/14 18:13:00, Duration: 30 day, Stop date: 04/06/14 18:12:00 No Longer Active 03/08/2014 [facility] Potassium Chloride 20 mEq, 100 mL, Route: IVPB, Drug form: INJ, Q2H, Dosing Weight 73.636, kg, Total dose=40 mEq, Start date: 03/07/14 12:00:00, Duration: 2 doses or times, Stop date: 03/07/14 14:00:00Notes: (Same as: KCL) Infuse no faster than 10 mEq/hr if given peripherally. Inactive 03/07/2014 [facility] Insulin, Aspart, Human 1 unit, 0.01 mL, Route: SUB-Q, Drug form: SOLN, Bedtime, Dosing Weight 73.636, kg, PRN Blood Glucose Results, Start date: 03/07/14 11:26:00, Duration: 30 day, Stop date: 04/06/14 11:25:00Notes: Roll in palms of hands gently; Do not shake vigorously. (Same as: NovoLOG) "single patient use only" Stable for 28 days at room temperature. Expires in days from Date Inactive 03/07/2014 [facility] Dextrose 50% Syringe 12.5 gm, 25 mL, Route: IVP, Drug Form: INJ, Dosing Weight 73.636, kg, PRN, PRN Blood Glucose Results, Start date: 03/07/14 11:26:00, Duration: 30 day, Stop date: 04/06/14 11:25:00 Inactive 03/07/2014 [facility] Glucagon 1 mg, Route: IM, Drug form: PDR/INJ, PRN, Dosing Weight 73.636, kg, PRN Blood Glucose Results, Start date: 03/07/14 11:26:00, Duration: 30 day, Stop date: 04/06/14 11:25:00 Inactive 03/07/2014 [facility] pneumococcal capsular polysaccharide type 1 vaccine / pneumococcal capsular polysaccharide type 10A vaccine / pneumococcal capsular polysaccharide type 11A vaccine / pneumococcal capsular polysaccharide type 12F vaccine / pneumococcal capsular polysacchar 0.5 ml, Route: IM, Drug Form: INJ, Daily, Start date: 03/07/14 9:00:00, Duration: 1 doses or times, Stop date: 03/07/14 9:00:00Notes: (Same as: Pneumovax 23) Refrigerate Inactive 03/07/2014 [facility] Ondansetron 4 mg, 2 mL, Route: IVP, Drug form: INJ, Q8H, Dosing Weight 73.636, kg, PRN Nausea & Vomiting, Start date: 03/07/14 4:19:00, Duration: 30 day, Stop date: 04/06/14 4:18:00Notes: (Same as: Zofran) No Longer Active 03/07/2014 [facility] Morphine 2 mg, 1 mL, Route: IVP, Drug form: INJ, Q3H, Dosing Weight 73.636, kg, PRN Pain Score 4-6, Start date: 03/07/14 4:19:00, Duration: 30 day, Stop date: 04/06/14 4:18:00Notes: (Same as:MORPhine Sulfate) No Longer Active 03/07/2014 [facility] NS + KCL 20mEq/L 1000ml (Premix) 1,000 mL 1,000 mL, Rate: 125 ml/hr, Infuse over: 8 hr, Route: IV, Dosing Weight 73.636 kg, Total Volume: 1,000, Start date: 03/07/14 0:35:00, Duration: 30 day, Stop date: 04/06/14 0:34:00Notes: PREMIX IV - Do Not Alter No Longer Active 03/07/2014 [facility] saxagliptin 2.5 MG Oral Tablet [Onglyza] 2.5 mg=1 tab, PO, Daily, # 30 tab, 0 Refill(s) Active 03/07/2014 [facility] Lantus 40 units, Daily, 0 Refill(s) Active 03/07/2014 [facility] atorvastatin 10 mg oral tablet 10 mg=1 tab, PO, Bedtime, # 30 tab, 0 Refill(s) Active 03/07/2014 [facility] Hydrochlorothiazide 12.5 MG / Losartan Potassium 100 MG Oral Tablet 1 tab, PO, Daily, # 30 tab, 0 Refill(s) Active 03/07/2014 [facility] Glipizide 5 MG Oral Tablet 5 mg=1 tab, PO, Daily, # 30 tab, 0 Refill(s) Active 03/07/2014 [facility] Metoprolol Tartrate 25 mg oral tablet Daily, 0 Refill(s) Active 03/07/2014 [facility] Ativan 1 mg, Route: IVP, Drug form: INJ, ONCE, Dosing Weight 73.636, kg, Priority: STAT, Start date: 03/06/14 23:42:00, Stop date: 03/06/14 23:42:00 Inactive 03/07/2014 [facility] Zofran 4 mg, 2 mL, Route: IVP, Drug form: INJ, ONCE, Dosing Weight 73.636, kg, Priority: STAT, Start date: 03/06/14 23:42:00, Stop date: 03/06/14 23:42:00Notes: (Same as: Zofran) No Longer Active 03/07/2014 [facility] Morphine 4 mg, 2 mL, Route: IVP, Drug form: INJ, ONCE, Dosing Weight 73.636, kg, Priority: STAT, Start date: 03/06/14 23:42:00, Stop date: 03/06/14 23:42:00Notes: (Same as:MORPhine Sulfate) No Longer Active 03/07/2014 [facility] Dilaudid 1 mg, Route: IV, ONCE, Dosing Weight 73.636, kg, Start date: 03/06/14 21:14:00, Stop date: 03/06/14 21:14:00 Inactive 03/07/2014 [facility] Ondansetron 4 MG Oral Tablet [Zofran] 4 mg=1 tab, PO, BID, # 10 tab, 0 Refill(s) Active 03/07/2014 [facility] Loperamide 2 mg, 1 cap, Route: PO, Drug form: CAP, ONCE, Dosing Weight 73.636, kg, Priority: STAT, Start date: 03/06/14 20:35:00, Stop date: 03/06/14 20:35:00Notes: (Same as: Imodium) MAX adult dose is 8 caps/day Inactive 03/07/2014 [facility] Sodium Chloride 0.154 MEQ/ML Injectable Solution 1,000 mL, 1,000 ml/hr, Infuse Over: 1 hr, Route: IV, ONCE, Priority: STAT, Dosing Weight 73.636 kg, Start date: 03/06/14 20:32:00, Duration: 1 doses or times, Stop date: 03/06/14 20:32:00 Inactive 03/07/2014 [facility] Ondansetron 4 mg, Route: IVP, Drug form: INJ, ONCE, Dosing Weight 73.636, kg, Priority: STAT, Start date: 03/06/14 20:32:00, Stop date: 03/06/14 20:32:00 Inactive 03/07/2014 [facility] Allergies, Adverse Reactions, Alerts Substance Category Reaction Severity Reaction type Status Date Reported Comments Source codeine Assertion Drug allergy Active [facility] penicillins Assertion Drug allergy Active [facility] Immunizations Immunization Date Given Site Status Last Updated Comments Source pneumococcal 23-valent vaccine 03/07/2014 Not Given [facility] Results Order Name Results Value Reference Range Date Interpretation Comments Source Chest 2 views DX Chest 2 views DX EXAM: Chest 2 views DX HISTORY: - J20.9 Acute bronchitis, unspecified COMPARISON: 01/22/2009 The heart size is normal and the lungs are clear. There is no pleural effusion or pneumothorax. Mild discogenic degenerative changes are noted. IMPRESSION: No acute abnormality. 04/05/2017 - - Read by: Gerda Price MD Dictated Date/time: 04/05/17 15:11 Electronically Signed by: Gerda Price MD 04/05/17 15:11 FINAL REPORT [facility] Retroperitoneal Complete US Retroperitoneal Complete US Exam: Bilateral renal ultrasound. Reason for Exam: N18.3 Chronic kidney disease, stage 3 (moderate) Comparison Exam: CT scan 03/06/2014 Discussion: Multiple sagittal and axial images were obtained of the kidneys. The right kidney measures 9.3 x 4.3 x 4.2 cm. It is of unremarkable echogenicity without focal masses, hydronephrosis, or shadowing renal calculi. The cortical thickness measures 1.0 cm. The left kidney measures 9.1 x 4.0 x 3.9 cm. It is of unremarkable echogenicity without focal masses, hydronephrosis, or shadowing renal calculi. The cortical thickness measures 1.0 cm. Visualized portions of the bladder are unremarkable. Bilateral ureteral jets are identified. Visualized portions of the aorta and IVC are unremarkable. The common iliac arteries are not adequately seen. Impression: 1. Kidneys are unremarkable in sonographic appearance. 05/24/2016 - - Read by: Uriah Marshall MD Dictated Date/time: 05/24/16 14:56 Electronically Signed by: Uriah Marshall MD 05/24/16 14:58 FINAL REPORT [facility] ELECTROLYTES AGAP 9.2 meq/L 10.0 - 20.0 03/08/2014 [facility] ELECTROLYTES B/C Ratio 15 6 - 25 03/08/2014 [facility] ELECTROLYTES A/G Ratio 0.9 0.7 - 1.6 03/08/2014 [facility] ELECTROLYTES Globulin 3.2 g/dL 2.0 - 4.0 03/08/2014 [facility] ELECTROLYTES Potassium Lvl 4.2 meq/L 3.5 - 5.1 03/08/2014 [facility] ELECTROLYTES Chloride Lvl 113 meq/L 95 - 109 03/08/2014 [facility] ELECTROLYTES Sodium Lvl 141 meq/L 135 - 145 03/08/2014 [facility] ELECTROLYTES eGFR 52 mL/min/1.73m2 03/08/2014 2Result Comment: The eGFR is calculated using [...] from the National Kidney Disease Education Program (NKDEP) which additionally recommends that when the eGFR is used in patients with extremes of body mass index for purposes of drug dosing, the eGFR should be multiplied by the estimated BMI. [facility] ELECTROLYTES Glucose Lvl 122 mg/dL 70 - 99 03/08/2014 4Interpretive Data: Adult reference range values reflect the clinical guidelines of the [place] [employer]. [facility] ELECTROLYTES Alk Phos 78 unit/L 39 - 136 03/08/2014 [facility] ELECTROLYTES ALT 16 unit/L 0 - 65 03/08/2014 [facility] ELECTROLYTES AST 12 unit/L 0 - 37 03/08/2014 [facility] ELECTROLYTES Calcium Lvl 7.6 mg/dL 8.5 - 10.5 03/08/2014 [facility] ELECTROLYTES BUN 15 mg/dL 7 - 22 03/08/2014 [facility] ELECTROLYTES CO2 23 meq/L 24 - 32 03/08/2014 [facility] ELECTROLYTES Creatinine Lvl 1.0 mg/dL 0.5 - 1.4 03/08/2014 [facility] ELECTROLYTES Bili Total 0.8 mg/dL 0.2 - 1.3 03/08/2014 [facility] ELECTROLYTES Total Protein 6.2 g/dL 6.4 - 8.4 03/08/2014 [facility] Albumin Lvl 3.0 g/dL 3.5 - 5.0 03/08/2014 [facility] HEMATOLOGY Hgb 11.6 g/dL 12.0 - 16.0 03/08/2014 [facility] HEMATOLOGY Hct 35.0 % 36.0 - 48.0 03/08/2014 [facility] HEMATOLOGY MCV 85.6 fL 80.0 - 98.0 03/08/2014 [facility] MCH 28.3 pg 27.0 - 31.0 03/08/2014 [facility] MCHC 33.1 g/dL 32.0 - 36.0 03/08/2014 [facility] Platelet 158 K/CMM 133 - 450 03/08/2014 [facility] RDW 13.1 % 11.5 - 14.5 03/08/2014 [facility] MPV 10.9 fL 7.4 - 10.4 03/08/2014 [facility] RBC 4.09 M/CMM 4.20 - 5.40 03/08/2014 [facility] WBC 9.0 K/CMM 3.7 - 10.4 03/08/2014 [facility] PT 14.3 s 12.0 - 14.7 03/08/2014 [facility] PTT 38.8 s 22.9 - 35.8 03/08/2014 7Interpretive Data: Heparin Therapeutic Range: 57 - 92 Seconds [facility] INR 1.10 0.85 - 1.17 03/08/2014 6Interpretive Data: RECOMMENDED RANGES FOR PROTIME INR: 2.0-3.0 for most medical and surgical thromboembolic states. 2.5-3.5 for artificial heart valves and recurrent embolism. INR SHOULD BE USED ONLY FOR PATIENTS ON STABLE ANTICOAGULANT THERAPY. [facility] Hgb 11.6 g/dL 12.0 - 16.0 03/08/2014 [facility] Hct 35.0 % 36.0 - 48.0 03/08/2014 [facility] Eosinophils # 0.4 K/CMM 0.0 - 0.5 03/08/2014 [facility] Basophils 0.5 % 0.0 - 1.0 03/08/2014 [facility] Segs-Bands # 5.7 K/CMM 1.5 - 8.1 03/08/2014 [facility] Lymphocytes # 2.0 K/CMM 1.0 - 5.5 03/08/2014 [facility] Monocytes # 0.8 K/CMM 0.0 - 0.8 03/08/2014 [facility] HEMATOLOGY Segs 63.2 % 45.0 - 75.0 03/08/2014 [facility] Lymphocytes 22.8 % 20.0 - 40.0 03/08/2014 [facility] Monocytes 9.3 % 2.0 - 12.0 03/08/2014 [facility] Eosinophils 4.2 % 0.0 - 4.0 03/08/2014 [facility] SPECIAL CHEMISTRY Hgb A1C 8.0 % <=5.6 % 03/08/2014 [facility] Abdomen 2 views Abdomen 2 views ABDOMEN 2 VIEWS: The NG tube has been removed since the previous day. The gas pattern appears normal with clearance of contrast in the colon seen on the previous exam. There is no evidence of pneumoperitoneum. There is no other change. IMPRESSION: Resolution of small bowel obstruction. SL:13 03/08/2014 - - Read by: John Aguilar MD Dictated Date/time: 03/08/14 08:47 Electronically Signed by: John Aguilar MD 03/08/14 08:48 FINAL REPORT [facility] MOLECULAR DIAGNOSTIC C difficile DNA Negative 8 (03/07/14 11:41 PM) Negative 03/08/2014 8Interpretive Data: [employer] Clostridium difficile assay utilizes loop-mediated isothermal DNA amplification (LAMP) technology to detect a 204 bp region of the tcdA gene within the PaLoc gene segment present in all known toxigenic C. difficile strains. The assay utilizes FDA cleared IVD reagents. Performance characteristics have been verified by the [facility] within the [facility]. The [facility] is authorized under the Clinical Laboratory Improvement Amendment of 1988 (CLIA-88) to perform high complexity testing. [facility] URINE AND STOOL UA Urobilinogen <=1.0 mg/dL 0.1 - 1.0 03/08/2014 [facility] URINE AND STOOL UA Color Ltyellow 03/08/2014 [facility] URINE AND STOOL UA Bacteria Occasional /HPF None Seen /HPF 03/08/2014 [facility] URINE AND STOOL UA WBC 5 /HPF 0 - 5 03/08/2014 [facility] URINE AND STOOL UA RBC null 0 - 2 03/08/2014 [facility] URINE AND STOOL UA Nitrite Negative (03/07/14 9:46 PM) Negative 03/08/2014 [facility] URINE AND STOOL UA Sq Epi Occasional /LPF Few /LPF 03/08/2014 [facility] URINE AND STOOL UA Leuk Est Negative (03/07/14 9:46 PM) Negative 03/08/2014 [facility] URINE AND STOOL UA Bili Negative *NA* (03/07/14 9:46 PM) Negative 03/08/2014 [facility] URINE AND STOOL UA Ketones Negative mg/dL Negative mg/dL 03/08/2014 [facility] URINE AND STOOL UA Blood Negative (03/07/14 9:46 PM) Negative 03/08/2014 [facility] URINE AND STOOL UA pH 5.0 5.0 - 8.0 03/08/2014 [facility] URINE AND STOOL UA Spec Grav 1.011 <=1.030 03/08/2014 [facility] URINE AND STOOL UA Turbidity Clear (03/07/14 9:46 PM) Clear 03/08/2014 [facility] URINE AND STOOL UA Protein Negative mg/dL Negative mg/dL 03/08/2014 [facility] URINE AND STOOL UA Glucose Negative mg/dL Negative mg/dL 03/08/2014 [facility] Abdomen 2 views Abdomen 2 views ABDOMINAL SERIES 2 views HISTORY: Abdominal distention, A CT scan of the abdomen and pelvis from yesterday was reviewed. TECHNIQUE: The abdomen was evaluated in supine and upright projections. FINDINGS: 1. Again noted are dilated small bowel loops consistent with a small bowel obstruction. There is gas throughout the colon which is similar to yesterday's CT study. Some contrast material from the CT scan has passed into the colon. 2. The nasogastric tube is folded over itself or coiled in the distal esophagus. The tube does not extend into the stomach. The significant finding was relayed to the patient's nurse, [place], by telephone on 03/07/2014 @ 11: 30. 3. Mild degenerative changes involving the lumbar spine. Coding: Abdomen 2 views CPT code: 39619 SL: 13 Mehdi Flores M.D. 03/07/2014 - - Read by: Mehdi Flores MD Dictated Date/time: 03/07/14 11:31 Electronically Signed by: Mehdi Flores MD 03/07/14 11:37 FINAL REPORT [facility] CHEM PANEL Amylase Lvl 21 unit/L 25 - 115 03/07/2014 [facility] CHEM PANEL Lipase Lvl 59 unit/L 73 - 393 03/07/2014 [facility] CHEM PANEL A/G Ratio 1.0 0.7 - 1.6 03/07/2014 [facility] CHEM PANEL Globulin 4.2 g/dL 2.0 - 4.0 03/07/2014 [facility] CHEM PANEL B/C Ratio 18 6 - 25 03/07/2014 [facility] CHEM PANEL Total Protein 8.4 g/dL 6.4 - 8.4 03/07/2014 [facility] CHEM PANEL Calcium Lvl 8.9 mg/dL 8.5 - 10.5 03/07/2014 [facility] CHEM PANEL AST 12 unit/L 0 - 37 03/07/2014 [facility] CHEM PANEL ALT 21 unit/L 0 - 65 03/07/2014 [facility] CHEM PANEL Albumin Lvl 4.2 g/dL 3.5 - 5.0 03/07/2014 [facility] CHEM PANEL eGFR 30 mL/min/1.73m2 03/07/2014 3Result Comment: The eGFR is calculated using [...] from the National Kidney Disease Education Program (NKDEP) which additionally recommends that when the eGFR is used in patients with extremes of body mass index for purposes of drug dosing, the eGFR should be multiplied by the estimated BMI. [facility] CHEM PANEL Bili Total 0.9 mg/dL 0.2 - 1.3 03/07/2014 [facility] CHEM PANEL Alk Phos 104 unit/L 39 - 136 03/07/2014 [facility] CHEM PANEL BUN 29 mg/dL 7 - 22 03/07/2014 [facility] CHEM PANEL Creatinine Lvl 1.6 mg/dL 0.5 - 1.4 03/07/2014 [facility] CHEM PANEL Glucose Lvl 213 mg/dL 70 - 99 03/07/2014 5Interpretive Data: Adult reference range values reflect the clinical guidelines of the [place] [employer]. [facility] CHEM PANEL CO2 23 meq/L 24 - 32 03/07/2014 [facility] CHEM PANEL Potassium Lvl 3.0 meq/L 3.5 - 5.1 03/07/2014 1Result Comment: Critical Result(s) called to ashley acuña at 03/06/2014 21:11 by LEN. Read back OK. [facility] CHEM PANEL Chloride Lvl 97 meq/L 95 - 109 03/07/2014 [facility] CHEM PANEL Sodium Lvl 131 meq/L 135 - 145 03/07/2014 [facility] HEMATOLOGY RDW 13.4 % 11.5 - 14.5 03/07/2014 [facility] HEMATOLOGY MCHC 33.2 g/dL 32.0 - 36.0 03/07/2014 [facility] HEMATOLOGY Platelet 211 K/CMM 133 - 450 03/07/2014 [facility] HEMATOLOGY MCV 84.3 fL 80.0 - 98.0 03/07/2014 [facility] MCH 28.0 pg 27.0 - 31.0 03/07/2014 [facility] Hct 42.7 % 36.0 - 48.0 03/07/2014 [facility] MPV 10.6 fL 7.4 - 10.4 03/07/2014 [facility] WBC 18.1 K/CMM 3.7 - 10.4 03/07/2014 [facility] RBC 5.06 M/CMM 4.20 - 5.40 03/07/2014 [facility] Hgb 14.2 g/dL 12.0 - 16.0 03/07/2014 [facility] Basophils 0.5 % 0.0 - 1.0 03/07/2014 [facility] Lymphocytes # 1.9 K/CMM 1.0 - 5.5 03/07/2014 [facility] Segs-Bands # 15.0 K/CMM 1.5 - 8.1 03/07/2014 [facility] Eosinophils # 0.1 K/CMM 0.0 - 0.5 03/07/2014 [facility] Monocytes # 1.0 K/CMM 0.0 - 0.8 03/07/2014 [facility] Lymphocytes 10.5 % 20.0 - 40.0 03/07/2014 [facility] Eosinophils 0.4 % 0.0 - 4.0 03/07/2014 [facility] Monocytes 5.7 % 2.0 - 12.0 03/07/2014 [facility] Basophils # 0.1 K/CMM 0.0 - 0.2 03/07/2014 [facility] Segs 82.9 % 45.0 - 75.0 03/07/2014 [facility] Abdomen/Pelvis wo IV contrast CT Abdomen/Pelvis wo IV contrast CT CT scan of the abdomen and pelvis without contrast: Exam reason: See Clinic indication abdominal pain, acute Multiple computerized axial tomograms of the abdomen and pelvis were obtained after administration of oral contrast and without intravenous contrast administration. Visualized lung bases are clear. Thoracic and lumbar spondylosis are noted associated with degenerative arthropathy of the lower lumbar apophyseal joints. The stomach is distended by contrast. Vascular calcification is noted at the normal caliber abdominal aorta. Granulomatous calcification is noted at the spleen. The gallbladder is not identified. Nonspecific bilateral adrenal nodularity is noted statistically likely representing adenomata. No renal or abdominal ureteral calculi are noted. No obstructive uropathic changes are noted. The visualized upper abdominal viscera are otherwise unremarkable. No adenopathy, abdominal mass or free fluid is noted. tiny fat filled umbilical hernia is noted superimposed upon laxity and attenuation of the ventral abdominal wall in the midline. Sigmoid diverticulosis is present. Venous vascular and atherosclerotic arterial calcification are present at the pelvis. No pelvic ureteral or bladder calculus is noted. Dilated segments of distal jejunum and proximal ileum are noted with relative decompression of the distal ileum suggesting the possibility of a small bowel obstruction. No transition zone is readily identified. The appendix is nonvisualized; however, no right lower quadrant inflammatory changes are noted. IMPRESSION: 1. Dilated segments of distal jejunum and proximal ileum are noted with relative decompression of the distal ileum suggesting the possibility of a small bowel obstruction. No transition zone is readily identified. 2. No renal or abdominal ureteral calculi are noted. No obstructive uropathic changes are noted. No pelvic ureteral or bladder calculus is noted. 3. Gallbladder is not identified presumed to be surgically absent. 4. Sigmoid diverticulosis. SL:12 03/06/2014 - - Read by: Pierce Dockery MD Dictated Date/time: 03/06/14 22:21 Electronically Signed by: Pierce Dockery MD 03/06/14 22:28 FINAL REPORT [facility] Vital Signs Vital Sign Value Date Comments Source Temperature Oral (F) 97.8 F 03/08/2014 [facility] Heart Rate 81 03/08/2014 [facility] Respitory Rate 16 03/08/2014 [facility] Diastolic (mm Hg) 68 03/08/2014 [facility] Systolic (mm Hg) 147 03/08/2014 [facility] Diastolic (mm Hg) 67 03/08/2014 [facility] Heart Rate 82 03/08/2014 [facility] Temperature Oral (F) 98.3 F 03/08/2014 [facility] Respitory Rate 16 03/08/2014 [facility] Systolic (mm Hg) 127 03/08/2014 [facility] Temperature Oral (F) 98 F 03/08/2014 [facility] Diastolic (mm Hg) 66 03/08/2014 [facility] Systolic (mm Hg) 149 03/08/2014 [facility] Respitory Rate 16 03/08/2014 [facility] Heart Rate 97 03/08/2014 [facility] BMI Calculated 27.87 03/07/2014 [facility] Weight 73.636 03/07/2014 [facility] Height 162.56 cm 03/07/2014 [facility] Height 162.56 cm 03/07/2014 [facility] Weight 73.636 03/07/2014 [facility] BMI Calculated 27.87 03/07/2014 [facility] Encounters Location Location Details Encounter Type Encounter Number Reason For Visit Attending Provider ADM Date DC Date Status Source [facility] Inpatient [id number] Eric Mcguire 03/07/2014 03/08/2014 [facility] [id number] Corey Adamson 05/24/2016 05/25/2016 [facility] [id number] Sandy Cheney 04/05/2017 04/06/2017 [facility] Procedures Procedure Code Date Perfomer Comments Source Cataract surgery [id number] [facility] Cholecystectomy [id number] [facility] Cataract surgery [id number] [facility] Cholecystectomy [id number] [facility]
[2018-04-16] MEDS ORDERED: CELECOXIB 200 MG CAP ONE (05:43)
[2018-04-16] MEDS ORDERED: DEXAMETHASONE SOD PHOS 10 MG/1 ML VIAL ONE (05:43)
[2018-04-16] MEDS ORDERED: VANCOMYCIN 1GM/NS 250 ML 250 ML ONE (05:44)
[2018-04-16] MEDS ORDERED: GABAPENTIN 300 MG CAP ONE (05:44)
[2018-04-16] MEDS ORDERED: VANCOMYCIN HCL 500 MG ONE (06:38)
[2018-04-16] MEDS ORDERED: BACITRACIN 50,000 UNIT VIAL ONE (06:39)
[2018-04-16] MEDS ORDERED: TRANEXAMIC ACID 1,000 MG/10 ML ML ONE (06:39)
[2018-04-16] MEDS ORDERED: INSULIN REGULAR, HUMAN 100 UNIT/1 ML 3ML VIAL ONE ×3 (06:51→09:51)
[2018-04-16] MEDS ORDERED: SODIUM CHLORIDE 0.9% 500ML 500 ML ONE (07:14)
[2018-04-16] MEDS ORDERED: ROPIVACAINE 246.25 MG, EPINEPHRINE HCL 1:1000 1ML 0.5 MG, CLONIDINE HCL 0.08 MG, KETORO... INJ ONE ×5 (07:30)
[2018-04-16] MEDS ORDERED: ONDANSETRON HCL INJ 2MG/ML 2ML 2 MG/ML VIAL IV PRN (08:30)
[2018-04-16] MEDS ORDERED: ACETAMINOPHEN 650 MG SUPP PR PRN (08:30)
[2018-04-16] MEDS ORDERED: PROMETHAZINE HCL (IM) 25 MG/ML VIAL INJ PRN (08:30)
[2018-04-16] MEDS ORDERED: DOCUSATE SODIUM 100 MG CAP PO PRN (08:30)
[2018-04-16] MEDS ORDERED: ZOLPIDEM TARTRATE 5 MG TAB PO PRN (08:30)
[2018-04-16] MEDS ORDERED: HYDROCODONE/APAP 7.5MG-325MG 1 EA TAB PO PRN (08:30)
[2018-04-16] MEDS ORDERED: HYDROCODONE/APAP 5MG-325MG TAB PO PRN (08:30)
[2018-04-16] MEDS ORDERED: DIPHENHYDRAMINE HCL INJ 50 MG/ML VIAL IM/IV PRN (08:30)
[2018-04-16] MEDS ORDERED: KETOROLAC TROMETHAMINE 30 MG/ML VIAL IV PRN ×2 (08:30→23:15)
[2018-04-16] MEDS ORDERED: ASPIRIN 325 MG TAB PO SCH (09:00)
[2018-04-16] MEDS ORDERED: CELECOXIB 100 MG CAP PO SCH (09:00)
[2018-04-16] MEDS ORDERED: LABETALOL HCL 20 MG/4 ML SYRINGE IV ONE (09:22)
[2018-04-16] MEDS ORDERED: FENTANYL CITRATE/PF 100MCG/2 ML INJ ONE ×2 (09:26→18:43)
--- NOTE | 2018-04-16 10:13 | Diagnostic Imaging Report ---
Exam: Right knee 2 views History: Pain Comparison: None. Findings: No fracture or malalignment. 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 No complication. No abnormal soft tissue calcification or soft tissue defect. Impression: Right total knee arthroplasty with postsurgical change. No complication. Signed by: Dr. Jeet Dunn M.D. on 04/16/2018 10:10 AM
[2018-04-16] MEDS ORDERED: ONDANSETRON HCL INJ 2MG/ML 2ML 2 MG/ML VIAL ONE ×2 (11:37→19:24)
[2018-04-16] MEDS: ACETAMINOPHEN 1000 MG/100 ML IV SCH ×2 (12:32→18:16)
[2018-04-16] MEDS ORDERED: ACETAMINOPHEN 1000 MG/100 ML 100 ML IV ONE (12:34)
[2018-04-16] MEDS: SODIUM CHLORIDE 0.9% 1000ML 1,000 ML IV SCH ×2 (12:51→18:17)
--- OUTSIDE RECORDS SUMMARY | 2018-04-16 14:20 | XMS REPORT ---
Author [facility] Address Unknown Phone Unavailable Care Team Providers Care Conservation Or Heritage Architect Name Role Phone CARMEL RODRÍGUEZ Unavailable Unavailable Problems This patient has no known problems. Allergies, Adverse Reactions, Alerts This patient has no known allergies or adverse reactions. Medications This patient has no known medications. Results Test Description Test Time Test Comments Text Results Atomic Results Result Comments KNEE RIGHT 1-2 VIEWS 2018-04-16 10:09:00 [place] [id number] Patient Name: FARIBA PONCE MR #: [id number] : 1930 Age/Sex: 88/F Req #: [id number] [facility] Physician: Ordered by: CARMEL RODRÍGUEZ MD Report #: [id number] Location: OR Room/Bed: Procedure: [id number] DX/KNEE RIGHT 1-2 VIEWS Exam Date: 04/16/18 Exam Time: 0915 REPORT STATUS: Signed Exam: Right knee 2 views History: Pain Comparison: None. Findings: No fracture or malalignment. 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 No complication. No abnormal soft tissue calcification or soft tissue defect. Impression: Right total knee arthroplasty with postsurgical change. No complication. Signed by: Dr. Sreedhar Prakash M.D. on 04/16/2018 10:10 AM Dictated By: SREEDHAR PRAKASH MD 1010 Transcribed By: PALOMA on 04/16/18 1010 COPY TO: CARMEL RODRÍGUEZ MD
--- NOTE | 2018-04-16 15:34 | Operative Report ---
DATE OF PROCEDURE: 04/16/2018 SURGEON: John Alicea MD ROBOTYPE OPERATOR: Ventura Hoffmann PA-C PREOPERATIVE DIAGNOSIS: Osteoarthritis, right knee. POSTOPERATIVE DIAGNOSIS: Osteoarthritis, right knee. PROCEDURE: Right total knee arthroplasty. INDICATIONS: The patient is an 88-year-old woman, who has end-stage arthritis of her right knee. Findings and options have been discussed. She has failed conservative management and would like to proceed with a right knee replacement. The risks and benefits of the procedure have been discussed. She states she understands and wishes to proceed. DESCRIPTION OF PROCEDURE: The patient was brought to the operating room and placed under general anesthetic. She received prophylactic antibiotics, a regional block, and tranexamic acid in the holding area. Her right lower extremity was prepped and draped in a sterile manner. A preoperative time-out was performed. The extremity was exsanguinated and the proximal tourniquet was inflated to 300 mmHg. An anterior approach with a medial parapatellar arthrotomy was performed. A small amount of clear synovial fluid was removed from the joint. Soft tissue releases were performed to bring the knee up into flexion with the patella everted. Limited medial exposure was performed due to the valgus deformity. The cruciate ligaments were sacrificed. A Eisenberg and Nephew posterior stabilized Legion knee system was used throughout the case. Meniscal remnants and marginal osteophytes were removed. An extramedullary cutting guide was used to resect the proximal tibia. The tibial base plate was a size #3. The central fin punch was impacted, and attention was directed towards the distal femur. An intramedullary cutting guide was used to resect the distal femur in 6 degree of valgus and rotation referencing off a combination of landmarks including [place]'s line, the epicondylar axis and the posterior condyle. The femoral component was a size #4. The anterior and posterior cuts were made. Trial reductions were performed. The lateral compartment was overly tight. A lamina machine engineer and an 11 blade surgical knife were used to release the lateral structures to balance the knee. A 9 mm ultracongruent tibial inset then provided appropriate soft tissue balancing in full extension and 90-degrees of flexion. The patella was resurfaced with a 29 mm x 7.5 mm patellar button. The thickness was checked before and after and was right at 20 mm. Patella tracking was noted to be concentric. The trial implants were removed. A 100 mL premixed pericapsular CY injection was placed into the surrounding soft tissue. The knee was thoroughly irrigated with the shower tip pulsatile lavage. The components were cemented into place using a single mix of [place] cement preloaded with antibiotics. Care was taken to remove extravasated cement. The wound was further irrigated while the cement cured. The arthrotomy was then closed with interrupted #1 Ethibond. The skin was closed with subcuticular Vicryl and carol. A sterile Aquacel bandage was applied. The patient was extubated and transported to the recovery room in stable condition. Blood loss was minimal. All needle and sponge counts were correct. John Alicea MD DR/KATY /[id number]
--- NOTE | 2018-04-16 16:15 | NUR ---
ARRIVED VIA STRETCHER FROM PACU, AA&OX3, RA AT THIS TIME, DENIES PAIN AT THIS TIME, RLE DRESSING CDI, ORIENTED TO ROOM AND CALL LIGHT SYSTEM, CALL LIGHT WITHIN REACH
[2018-04-16 16:39] VITALS: BP 134/63
[2018-04-16 16:45] VITALS: BP 134/63
[2018-04-16 16:46] VITALS: BP 134/63
[2018-04-16] MEDS: ASPIRIN 325 MG TAB PO SCH (18:00)
[2018-04-16] MEDS ORDERED: LIDOCAINE 2% /EPINEPHRINE 20 ML SDV INJ ONE (18:29)
[2018-04-16] MEDS ORDERED: ROPIVACAINE 0.5% 5 MG/ML 30 ML SDV ONE (18:29)
[2018-04-16] MEDS: VANCOMYCIN 1GM/NS 250 ML 250 ML IV SCH (18:30)
[2018-04-16] MEDS ORDERED: PROPOFOL IV EMULSION 10 MG/ML 20 ML VIAL ONE (19:24)
[2018-04-16] MEDS ORDERED: LIDOCAINE HCL 2% LOCAL INJ 5 ML SDV VIAL INJ ONE (19:24)
[2018-04-16] MEDS ORDERED: SEVOFLURANE INHAL SOLN 250 ML PEN BTL ONE (19:24)
--- NOTE | 2018-04-16 19:33 | NUR ---
SPOKE WITH MAUREEN MAXWELL WITH MD RORDÍGUEZ, CLARIFIED CPM ORDERS
--- NOTE | 2018-04-16 19:43 | NUR ---
SPOKE WITH DR LI FOR ORDERS TO CONTINUE HOME MEDS. HAS NO ORDERS AT THIS TIME.
[2018-04-16 20:00] VITALS: BP 135/63
--- NOTE | 2018-04-16 21:30 | NUR ---
CPM TO RIGHT KNEE STARTED
--- NOTE | 2018-04-16 22:30 | NUR ---
FAMILY IS CONCERNED REGARDING PATIENTS BLOOD SUGAR AND HOME MEDICATIONS. EXPLAINED TO THE FAMILY THAT MD WAS NOTIFIED AND DID NOT CONTINUE HOME MEDICATIONS. FAMILY STILL INSIST TO ASKED MD FOR ORDERS TO CONTINUE INSULIN AT NIGHT. MD NOTIFIED NEW ORDERS RECEIVED TO FOLLOW SLIDING SCALE AND START HOME MED OF INSULIN AT NIGHT.
[2018-04-16] MEDS ORDERED: INSULIN GLARGINE 100 UNITS/ML VIAL SQ SCH (22:32)
[2018-04-16] MEDS ORDERED: INSULIN LISPRO 100 UNIT/1 ML 3ML VIAL SQ SCH ×2 (22:32→22:40)
[2018-04-16] MEDS ORDERED: DEXTROSE 50% SYRINGE 50 ML IV PRN ×3 (23:30→23:45)
[2018-04-17] VITALS: BP 148/61
[2018-04-17] MEDS: INSULIN LISPRO 100 UNIT/1 ML 3ML VIAL SQ SCH ×3 (00:03→12:30)
[2018-04-17] MEDS ORDERED: DEXTROSE 50% SYRINGE 50 ML IV PRN (00:15)
[2018-04-17] MEDS: ACETAMINOPHEN 1000 MG/100 ML IV SCH ×2 (00:17→06:15)
[2018-04-17 00:21] VITALS: BP 135/63
[2018-04-17 04:00] VITALS: BP 156/65
[2018-04-17 06:07] LABS: HEMATOCRIT 32.6 % (34.2-44.1); HEMOGLOBIN 10.8 g/dL (12.0-16.0)
[2018-04-17] MEDS: METOPROLOL SUCCINATE 25 MG TAB XL PO SCH ×2 (06:56→13:24)
[2018-04-17] MEDS: VANCOMYCIN 1GM/NS 250 ML 250 ML IV SCH (07:21)
[2018-04-17] MEDS ORDERED: CELECOXIB 100 MG CAP PO SCH (08:00)
[2018-04-17 08:07] VITALS: BP 136/63
[2018-04-17] MEDS ORDERED: ACETAMINOPHEN 1000 MG/100 ML IV PRN (08:30)
[2018-04-17] MEDS ORDERED: INSULIN GLARGINE 100 UNITS/ML VIAL SQ ONE (08:45)
[2018-04-17] MEDS: ASPIRIN 325 MG TAB PO SCH (09:30)
--- NOTE | 2018-04-17 10:43 | NUR ---
CASE MANAGEMENT ASSESSMENT Certified Breastfeeding Educator to bedside to discuss plan of care with patient/family. CM/SW role and care transitions discussed. Anticipated discharge plan discussed along with duration of care. CM/SW discussed patients right to make decisions in care. CM/SW work hours given. Patient lives: with her daughters Hannah and Soco Admit/Transfer: from PACU Hospital/ER visits since last admit: last hospitalization was years ago POA/Emergency contact: ann-marie Young [phone] and Soco Aguirre [phone] Current/Previous Home Health: none previously. Dr. Alicea's office set up home health with [facility]. CHERELLE called and spoke with Megan. Informed her that we are anticipating discharge today. She states that they will see pt tomorrow. PCP/Follow-up Care: Dr. Arellano - PCP; pt will follow up with Dr. Alicea as instructed Current/Previous DME: has old BSC and walker from her ; also has new shower chair. Dr. Alicea's office sent DME orders to [facility]. CHERELLE called and spoke with Jimmy and informed her that pt will be discharging today. She stated that they will deliver equipment tomorrow. CM will provide walker here. Medications (referring to index hospitalization or the first time you were in the hospital) a. Were changes made in your medications when you were in the hospital on [date of index hospitalization]? n/a b. Did you understand the changes? n/a c. Were you able to obtain your new medications right away? n/a d. Were you able to take your medications like the doctor wanted you to? n/a e. Did the hospital give you an accurate, easy to understand list of medications when you left? n/a Scale of 1-10 how comfortable does patient feel with disease management in outpatient settin Other Services: none Employment Status: retired Areas of Concerns: right knee arthroplasty Referral Needs: home health Education Needs: post operative instructions IMM/SEBASTIAN given and signed (if applicable): SEBASTIAN letter explained. Signed copy placed in chart. Copy to pt Goal for discharge: home with home health CM/SW left business card at the bedside with contact information. Name and number was also written on the patients whiteboard. Patient verbalized understanding of discussion. CM will follow-up with ongoing discharge and transition of care needs.
[2018-04-17 10:58] VITALS: BP 136/63
--- NOTE | 2018-04-17 10:59 | NUR ---
PT AMBULATED WITH PHYSICAL THERAPIST 2ND TIME IN HALLWAY, STEADY GAIT,
[2018-04-17] MEDS ORDERED: NORCO 7.5-3251 EACH PO (11:55)
--- NOTE | 2018-04-17 12:37 | NUR ---
PT ELIANE WRAP REMOVED PER MD ORDER, AQUASEAL DRESSING CDI, MUKUND HOSE PLACED, PT DISCHARGE INSTRUCTIONS REVIEWED WITH PT AND FAMILY, VERBALIZED UNDERSTANDING, BP ELEVATED AT THIS TIME, TO BE RECHECKED
--- NOTE | 2018-04-17 13:00 | NUR ---
SPOKE WITH MD LI, MADE AWARE THAT PT BP IS ELEVATED AT 174/79 AT THIS TIME, ORDERS NOTED
[2018-04-17] MEDS ORDERED: ASPIRIN325 MG PO (13:23)
--- NOTE | 2018-04-17 13:24 | NUR ---
PT MEDICATED PER MD ORDER @ 1324, DISCHARGE INSTRUCTIONS REVIEWED AGAIN, IV REMOVED BY CHARGE NURSE, PT ASSISTED TO WC, PT NOW REQUESTING TO GO "HAVE BM" BEFORE LEAVING, ASSISTED TO TOILET, CALL STRING WITHIN REACH
--- NOTE | 2018-04-17 16:31 | Consultation ---
DATE OF CONSULTATION: 04/16/2018 Medical Consultation CHIEF COMPLAINT: Status post right knee replacement. HISTORY: This is an 88-year-old female with osteoarthritis, diabetes, hypertension, status post right knee replacement. The patient is stable. Blood sugar is elevated. The patient is on pain medication adequately. PAST MEDICAL HISTORY: Diabetes type 2, on insulin therapy; hypertension; osteoarthritis. PAST SURGICAL HISTORY: Status post right knee replacement. SOCIAL HISTORY: The patient does not smoke or use alcohol. No recreational drugs. ALLERGIES: OXYTETRACYCLINE, CODEINE, AND PENICILLIN. HOME MEDICATIONS: List reviewed. REVIEW OF SYSTEMS: Postoperative pain, adequately treated. PHYSICAL EXAMINATION: VITAL SIGNS: Temperature is 97, blood pressure 136/63, pulse rate is 70, respirations 18. GENERAL: The patient is in no acute distress. HEENT: Normocephalic and atraumatic. Anicteric. NECK: Supple grossly. PULMONARY: Clear. CARDIOVASCULAR: Regular rate and rhythm. ABDOMEN: Soft and unremarkable. EXTREMITIES: No cyanosis. Status post right knee replacement. NEUROLOGIC: No focal deficit. LABORATORY DATA: Sodium is 134, potassium 4, chloride 103, bicarb 21, BUN 20, creatinine 1.0, glucose 291. WBC is 11, hemoglobin 10.8, hematocrit 32.6, and platelets are 185. IMPRESSION: 1. Status post right knee replacement. 2. Increase in blood sugar. PLAN: Continue with home medication. Insulin sliding scale coverage. Lantus. Pain control. PT, OT. MD GLENN Archer/KATY /[id number]
== END 2018-04-17 13:56 | disposition home health service (06) ==
LOC: OR 05:20 → EDBD 08:00 → PACU V 08:31 → MED/SURG 16:10
PROVIDERS: ADMIT Specialist; ATTEND Specialist
DX: M17.11 Unilateral primary osteoarthritis, right knee (principal); E11.65 Type 2 diabetes mellitus with hyperglycemia; I10 Essential (primary) hypertension; Z83.3 Family history of diabetes mellitus; Z82.49 Family history of ischemic heart disease and other diseases of the circulatory system; Z88.5 Allergy status to narcotic agent; Z88.0 Allergy status to penicillin; Z01.812 Encounter for preprocedural laboratory examination; Z79.4 Long term (current) use of insulin
CPT/HCPCS: 27447; 36415 ×3; 73560; 80048; 82948 ×2; 85014; 85018; 85025; 86850; 86900; 86920; 97110; 97116; 97139; 97162; 97530; C1713; G0378 ×2; J0131 ×2; J0171; J1100; J1815; J1885; J2001 ×2; J2405; J2704; J2795; J3370 ×3; J7040; J7030

== ENCOUNTER 2019-12-14 16:27 | Emergency (ER) | payer MEDICARE ==
[~2019-12-14] VITALS: Ht 162.6 cm; Wt 73.5 kg
[~2019-12-14 16:27] MED LIST changes: +ASPIRIN325 MG PO; +NORCO 7.5-3251 EACH PO
[2019-12-14] MEDS ORDERED: LOSARTAN POTASS25 MG PO (17:29)
[2019-12-14] MEDS ORDERED: CARVEDILOL12.5 MG PO (17:29)
[2019-12-14] MEDS ORDERED: LOSARTAN POTAS100 MG PO (17:31)
== END 2019-12-14 18:07 | disposition home or self-care (01) ==
LOC: FSED 16:59
DX: I10 Essential (primary) hypertension (principal)
CPT/HCPCS: 80053; 82553; 84484; 85025; 93005; 99284